=== PATIENT | female | born 2000 ===

== ENCOUNTER 2025-01-19 03:00 | Outpatient (CLI) | payer BC, SELFPAY ==
[2025-01-19 17:50] LABS: HCG Quant, Pregnancy 1 mIU/mL (1-3)
== END 2025-01-19 03:01 | disposition home or self-care (01) ==
PROVIDERS: Visit Provider Nurse Practitioner Family
DX: N97.9 Female infertility, unspecified (principal)
CPT/HCPCS: 36415; 84144; 84702